=== PATIENT | female | born 2000 | race Caucasian/White ===

== ENCOUNTER 2021-09-15 13:32 | Emergency (ER) | payer OTHER ==
[2021-09-15 15:00] LABS: BUN/CREATININE RATIO 6 (0-10)
[2021-09-15 15:24] LABS: HEMOGLOBIN 12.7 gm/dl (12.3-15.3); RED BLOOD COUNT 4.44 M/UL (4.00-5.10); WHITE BLOOD COUNT 9.3 K/UL (4.5-11.0)
[2021-09-15] MEDS ORDERED: DICLEGIS DR 101 EACH PO (18:03)
[2021-09-15] MEDS ORDERED: ONE-A-DAY PREN1 EAC1 PO (18:03)
[2021-09-15] MEDS ORDERED: PHENERGAN 25 MG25 M1 PO (18:03)
== END 2021-09-15 18:13 | disposition home or self-care (01) ==
LOC: ER1 13:32
PROVIDERS: Student in an Organized Health Care Education/Training Program
DX: O20.0 Threatened abortion (principal); O21.9 Vomiting of pregnancy, unspecified; O99.331 Smoking (tobacco) complicating pregnancy, first trimester; F17.200 Nicotine dependence, unspecified, uncomplicated; Z3A.01 Less than 8 weeks gestation of pregnancy
CPT/HCPCS: 76801; 80048; 81001; 84702; 84703; 85025; 86900; 86901; 96374; 99284; J2405; J7030

== ENCOUNTER 2021-09-23 08:05 | Emergency (ER) | payer OTHER ==
[~2021-09-23 08:05] MED LIST: DICLEGIS DR 101 EACH PO; ONE-A-DAY PREN1 EAC1 PO; PHENERGAN 25 MG25 M1 PO
[2021-09-23 09:04] LABS: HEMOGLOBIN 13.2 gm/dl (12.3-15.3); RED BLOOD COUNT 4.45 M/UL (4.00-5.10); WHITE BLOOD COUNT 11.4 K/UL (4.5-11.0)
[2021-09-23 09:33] LABS: BUN/CREATININE RATIO 10 (0-10)
[2021-09-23] MEDS ORDERED: REGLAN10 MG PO (10:05)
[2021-09-23] MEDS ORDERED: MACROBID 100 M100 MG PO (10:05)
== END 2021-09-23 10:55 | disposition home or self-care (01) ==
LOC: ER1 08:05
PROVIDERS: Emergency Medicine
DX: O23.11 Infections of bladder in pregnancy, first trimester (principal); F17.290 Nicotine dependence, other tobacco product, uncomplicated; Z3A.01 Less than 8 weeks gestation of pregnancy; O16.1 Unspecified maternal hypertension, first trimester; O99.331 Smoking (tobacco) complicating pregnancy, first trimester
CPT/HCPCS: 80053; 81001; 83690; 84702; 85025; 93005; 96374; 96375; 99284; J0696; J2765